=== PATIENT | male | born 1945 | race Caucasian/White ===

== ENCOUNTER 2017-07-30 09:58 | Emergency (ER) | payer MEDICARE, OTHER ==
[~2017-07-30] VITALS: Ht 182.9 cm; Wt 107.3 kg
[2017-07-30 10:05] VITALS: BP 143/76; TEMP 97.8
[2017-07-30] MEDS ORDERED: HYDROXYURE500 MG/CAP PO (10:25)
[2017-07-30] MEDS ORDERED: ZYLOPRIM 300MG300 MG PO (10:25)
[2017-07-30] MEDS ORDERED: K-DUR20 MEQ PO (10:26)
[2017-07-30] MEDS ORDERED: IRON TABLETS325 MG PO (10:26)
[2017-07-30] MEDS ORDERED: IMODIUM 2MG CAPS2 MG PO (10:27)
[2017-07-30 12:03] VITALS: PULSE 84
== END 2017-07-30 12:04 | disposition home or self-care (01) ==
LOC: COL.ER 09:58
DX: S49.92XA Unspecified injury of left shoulder and upper arm, initial encounter (principal); W10.9XXA Fall (on) (from) unspecified stairs and steps, initial encounter; Y92.009 Unspecified place in unspecified non-institutional (private) residence as the place of occurrence of the external cause

== ENCOUNTER 2020-03-25 13:00 | Outpatient (RCR) | payer MEDICARE, OTHER ==
[2020-03-24 16:09] LABS: RETIC # 0.02 M/mm3 (0.02-0.16); RETIC % 4.1 % (0.5-3.52)
[2020-03-25] VITALS (8 sets, daily range): BP systolic 97–121; BP diastolic 56–70; PULSE 64–78; TEMP 97.3–97.4
[~2020-03-25] VITALS: Ht 182.9 cm; Wt 114.3 kg
[~2020-03-25 13:00] MED LIST: HYDROXYURE500 MG/CAP PO; IMODIUM 2MG CAPS2 MG PO; IRON TABLETS325 MG PO; K-DUR20 MEQ PO; ZYLOPRIM 300MG300 MG PO
== END 2020-03-25 18:14 | disposition home or self-care (01) ==
LOC: EUO 13:00
PROVIDERS: Internal Medicine
DX: D47.3 Essential (hemorrhagic) thrombocythemia (principal)
CPT/HCPCS: J7050; P9016

== ENCOUNTER 2020-04-01 12:31 | Outpatient (RCR) | payer MEDICARE, OTHER ==
[2020-04-01] VITALS (10 sets, daily range): BP systolic 118–136; BP diastolic 60–74; PULSE 60–72; TEMP 98.1–98.3
[~2020-04-01] VITALS: Ht 182.9 cm; Wt 115.1 kg
== END 2020-04-01 17:42 | disposition home or self-care (01) ==
LOC: EUO 12:31
DX: D47.3 Essential (hemorrhagic) thrombocythemia (principal); D64.9 Anemia, unspecified
CPT/HCPCS: J7050; P9016

== ENCOUNTER 2020-04-29 13:00 | Outpatient (CLI) | payer MEDICARE, OTHER ==
[~2020-04-29] VITALS: Ht 182.9 cm; Wt 115.4 kg
[2020-04-29] VITALS (7 sets, daily range): BP systolic 137–157; BP diastolic 64–72; PULSE 70–77; TEMP 97.3–98.4
[2020-04-29] MEDS ORDERED: LOTREL 10 MG-201 CAP PO (15:58)
[2020-04-29] MEDS ORDERED: LIPITOR20 MG PO (15:59)
[2020-04-29] MEDS ORDERED: LEVOXYL0.075 MG PO (16:00)
== END 2020-04-29 20:29 | disposition home or self-care (01) ==
LOC: EUO 13:00
DX: D47.3 Essential (hemorrhagic) thrombocythemia (principal); D64.9 Anemia, unspecified
CPT/HCPCS: J7050; P9016

== ENCOUNTER 2020-05-09 10:36 | Outpatient (RCR) | payer MEDICARE, OTHER ==
[~2020-05-09] VITALS: Ht 182.9 cm; Wt 112.0 kg
[2020-05-09] VITALS (10 sets, daily range): BP systolic 108–133; BP diastolic 61–75; PULSE 57–73; TEMP 97–97.8
[~2020-05-09 10:36] MED LIST changes: +LEVOXYL0.075 MG PO; +LIPITOR20 MG PO; +LOTREL 10 MG-201 CAP PO
--- NOTE | 2020-05-09 16:00 | NUR ---
BLOOD INFUSED, NO C/O. IV D'CD INTACT, PT TO CAR VIA W/C
== END 2020-05-10 08:01 | disposition home or self-care (01) ==
LOC: EUO 10:36
DX: C49.0 Malignant neoplasm of connective and soft tissue of head, face and neck (principal); D47.3 Essential (hemorrhagic) thrombocythemia; D64.9 Anemia, unspecified
CPT/HCPCS: J7050; P9016

== ENCOUNTER 2020-05-22 07:34 | Outpatient (RCR) | payer MEDICARE, OTHER ==
[~2020-05-22] VITALS: Ht 182.9 cm; Wt 110.7 kg
[2020-05-22] VITALS (8 sets, daily range): BP systolic 95–122; BP diastolic 27–72; PULSE 63–74; TEMP 97.4–98.4
== END 2020-05-22 16:02 | disposition home or self-care (01) ==
LOC: EUO 07:34 → EDSTATUS 09:00 → EUO 16:02
DX: C44.90 Unspecified malignant neoplasm of skin, unspecified (principal); D46.A Refractory cytopenia with multilineage dysplasia; D64.9 Anemia, unspecified
CPT/HCPCS: J7050; P9016

== ENCOUNTER 2020-11-24 11:37 | Emergency (ER) | payer MEDICARE, OTHER ==
[~2020-11-24] VITALS: Ht 182.9 cm; Wt 120.5 kg
[2020-11-24 11:47] VITALS: TEMP 97.4
[2020-11-24] MEDS ORDERED: PERCOCET 325 MG1 TA2 PO (15:55)
[2020-11-24 16:35] VITALS: BP 132/62; PULSE 67
== END 2020-11-24 16:35 | disposition home or self-care (01) ==
LOC: COL.ER 11:37
DX: S42.211A Unspecified displaced fracture of surgical neck of right humerus, initial encounter for closed fracture (principal); S52.001A Unspecified fracture of upper end of right ulna, initial encounter for closed fracture; S00.83XA Contusion of other part of head, initial encounter; I10 Essential (primary) hypertension; Z87.891 Personal history of nicotine dependence; W18.09XA Striking against other object with subsequent fall, initial encounter
CPT/HCPCS: J3010

== ENCOUNTER 2021-09-16 13:25 | Inpatient (IN) | payer MEDICARE, OTHER ==
[~2021-09-16] VITALS: Ht 182.9 cm; Wt 122.6 kg
[~2021-09-16 13:25] MED LIST changes: +PERCOCET 325 MG1 TA2 PO
[2021-09-16] MEDS ORDERED: HYDROXYURE500 MG/CAP PO ×2 (14:56)
[2021-09-16] MEDS ORDERED: MONODOX100 PO (14:56)
--- NOTE | 2021-09-16 21:45 | NUR ---
Initial shift assessment done- pleasant, alert/oriented, voiding tea colored urine per urinal, denies pain/SOB, denies need for a snack tonight- understands to call for assistance out of bed
--- NOTE | 2021-09-17 05:21 | NUR ---
Quiet night- slept well, no requests. Voiding well-uses urinal
[2021-09-17 06:26] VITALS: BP 126/64; PULSE 93; TEMP 98.1
--- NOTE | 2021-09-17 08:00 | NUR ---
Report received from VALDEMAR Singh and patient was brought over to room 340 approxiately at 0830. Patient was transported via wheelchair and was able to stand on scale with walker but was able to walk to his room with the use of a cane. All of patient's personal belongings was with him. Call light and bedside table are within reach. Will continue to monitor patient throughout shift.
--- NOTE | 2021-09-17 08:00 | NUR ---
Patient sitting up in bed, A&Ox4. VSS. IV CDI. Denies pain and discomfort. Patient incontinent of urine, nurse assisted with changing patient. Patient transfered to the wheelchair to go to [facility]. Report called to VALDEMAR Zayas. Personal belongings with the patient. No further needs expressd.
[2021-09-17 11:04] LABS: HEMOGLOBIN 12.4 g/dl (13.5-18.0); MEAN CELL VOLUME 131 fl (80.0-100.0); MEAN CORPUSCULAR HEMOGLOBIN 46 pg (27-31); MEAN CORPUSCULAR HGB CONC 35 g/dl (33.0-37.0); MEAN PLATELET VOLUME 8.9 fl (7.4-10.4); RED BLOOD COUNT 2.69 M/mm3 (4.20-5.60); REDCELL DISTRIBUTION WIDTH-CV 13.1 % (11.5-14.5)
[2021-09-17 11:07] LABS: HEMATOCRIT 35.3 % (42.0-52.0); PLATELET COUNT 452 K/mm3 (130-400)
[2021-09-17 11:54] LABS: BAND 1 % (0-10); LYMPHOCYTE 8 % (20.0-51.0); NEUTROPHILS 81 % (42.0-75.2); PLATELET ESTIMATE INCREASED (NORMAL)
[2021-09-17 11:55] LABS: ANISOCYTOSIS 3+
--- NOTE | 2021-09-17 20:00 | NUR ---
PT RESTING IN BED. COOPERATIVE A&O X4. NO NEEDS AT THIS TIME. CALL LIGHT IN REACH. BED ALARM SET.
[2021-09-18 05:15] VITALS: BP 130/64; PULSE 110; TEMP 98.6
--- NOTE | 2021-09-18 10:06 | NUR ---
Follow-up visit; Patient thanked Business Support Coordinator for looking in on him, visiting and wishing him well and rapid healing as he wishes to go home.
[2021-09-18 18:31] VITALS: BP 129/57; PULSE 100; TEMP 98.1
--- NOTE | 2021-09-19 05:17 | NUR ---
PT A/OX 4 SLEPT WELL, DENIES ANY NEEDS AT THIS TIME
[2021-09-19 05:50] VITALS: BP 126/46; PULSE 61; TEMP 97.8
--- NOTE | 2021-09-19 07:43 | NUR ---
Report received from VALDEMAR Rodriguez. Patient is sleeping in bed. Call light and bedside table are within reach. Will continue to monitor patient throughout shift.
--- NOTE | 2021-09-19 09:15 | NUR ---
Patient reported he had two episodes last evening and one episode this morning of diarrhea and wanted immodium. This nurse requested the hospitalist prescribed immodium for the patient. The hospitalist wanted labs drawn for CDiff and to place the patient on contact precaution. This nurse complied. Call light and bedside table are within reach.
--- NOTE | 2021-09-19 12:00 | NUR ---
Patient completed all therapies for the day and is resting in bed. Patient denies pain at this time. Call light and bedside table are within reach.
[2021-09-19 13:59] LABS: CLOSTRIDIUM DIFF A/B NEG; CLOSTRIDIUM DIFF A/B INTERP No C.diff present
--- NOTE | 2021-09-19 16:34 | NUR ---
Patient tested negative for CDiff.
[2021-09-19 17:02] VITALS: BP 115/58; PULSE 94; TEMP 98.4
[2021-09-20 04:45] VITALS: BP 130/59; PULSE 107; TEMP 98.1
--- NOTE | 2021-09-20 05:04 | NUR ---
RESTING QUIETLY/SLEEPING MOST OF THE NIGHT. NO DYSPNEA AT REST. GAIT STEADY THOUGH PT HAS SOME DIFFICULTY WITH TRANSFERRING FROM BED TO STANDING.
--- NOTE | 2021-09-20 06:53 | NUR ---
Report received from VALDEMAR Thomas. Patient is sleeping in bed. Call light and bedside table are within reach. Will continue to monitor patient throughout shift.
--- NOTE | 2021-09-20 09:27 | NUR ---
production line worker met with patient at bedside to discuss discharge plan. Patient reports that he and his live in an apartment that is attached to his daughters home. Patient reports that prior to this hospitalization he was independent with his ADL's and has a cane that he utilizes when he goes out in public or takes walks. PCP is Dr. Head and he utilizes [facility] for medication needs. Spoke with the patient about going home with HH PT/OT vs. out patient therapy. Patient doesn't feel like he needs either of them and that he can do the exercises that he has been doing in the hospital with his at home on their own. This information was passed onto the patient's RN. Discharge plan: Home with family: is not interested in out patient PT/OT or HH
[2021-09-20 18:15] VITALS: BP 106/58; PULSE 98; TEMP 99
--- NOTE | 2021-09-21 04:39 | NUR ---
RESTING QUIETLY/SLEEPING. ASSIST OF ONE WITH TRANSFER FROM BED TO STANDING. GAIT FAIRLY STEADY. COMPLIANT WITH CARE OVERALL.
[2021-09-21 05:28] VITALS: BP 137/61; PULSE 92; TEMP 98.1
--- NOTE | 2021-09-21 06:58 | NUR ---
Report received from VALDEMAR Thomas. Patient is resting comfortably in bed. Patient denies pain at this time. Call light and bedside table are within reach. Will continue to monitor patient throughout shift.
--- NOTE | 2021-09-21 10:30 | NUR ---
Patient was made MOD-I in his room.
--- NOTE | 2021-09-21 14:00 | NUR ---
Patient's is at bedside
--- NOTE | 2021-09-21 16:40 | NUR ---
Solderer Torch met with patient to follow up on discharge plan. Patient will discharge tomorrow and states he wants to be heading home by 1100. SW discussed recommendation for outpatient PT. Patient states he wants to get home first, then decide on outpatient PT. SW advised that orders would be written for outpatient PT and that he can call to schedule an appointment when he is ready. SW offered to make patient's first appointment but he declined.
[2021-09-21 17:02] VITALS: BP 114/52; PULSE 86; TEMP 97.3
--- NOTE | 2021-09-21 22:06 | NUR ---
PT LAYING IN BED WAITING FOR EVENING MEDICATIONS. MEDICATIONS GIVEN. DENIES PAIN, PT STATES HE IS READY TO BE DISCHARGED. CALL LIGHT IN REACH.
[2021-09-22 05:32] VITALS: BP 133/66; PULSE 91; TEMP 97.7
--- NOTE | 2021-09-22 06:23 | NUR ---
PT HAD AN UNEVENTFUL NIGHT. PT SLEPT PART OF NIGHT, STATED HE WAS JUST READY FOR DISCHARGE. CALL LIGHT IN REACH.
--- NOTE | 2021-09-22 08:05 | NUR ---
Pt assessment complete. Pt is sitting up in bed upon entry, he is A/O x4. His breathing is even and unlabored on RA. Pt denies any pain. Excited to discharge home today. Denies needs at this time.
--- NOTE | 2021-09-22 10:15 | NUR ---
Discharge paperwork and instructions reviewed with patient. All questions answered at this time. Pt wheeled out of facility at this time.
--- NOTE | 2021-09-22 10:19 | NUR ---
Follow up; Patient thankfully told Sole Assessor he was leaving today and thanked her for visiting him and offering God's blessings.
--- NOTE | 2021-09-22 13:29 | NUR ---
ADMISSION Admission QIM scores were reviewed by the team. Code of 3 chosen for toileting transfers was determined by team discussion to be the most usual performance for this patient during the assessment period. Code of 3 chosen for upper body dressing was determined by team discussion to be the most usual performance before interventions for this patient during the assessment period. Code of 3 chosen for lower body dressing was determined by team discussion to be the most usual performance for this patient during the assessment period. Code of 1 chosen for putting on/taking off footwear was determined by team discussion to be the most usual performance for this patient during the assessment period. Code of 2 chosen for lying to sitting on side of bed was determined by team discussion to be the most usual performance for this patient during the assessment period. Code of 3 for sit to stand was determined by team discussion to be the most usual performance for this patient during the assessment period. Code of 3 for chair/bed to chair transfers was determined by team discussion to be the most usual performance for this patient during the assessment period. DISCHARGE Discharge QIM scores were reviewed by the team. Code of 6 chosen for shower/bathe self was determined by team discussion to be the most usual performance before interventions for this patient during the assessment period. Code of 3 chosen for lying to sitting on side of bed was determined by team discussion to be the most usual performance for this patient during the assessment period. PD Madeline
== END 2021-09-22 10:20 | disposition home or self-care (01) | DRG 948 ==
LOC: MEDICAL 19:01
PROVIDERS: Internal Medicine; Physician Assistant; ADMIT Physical Medicine & Rehabilitation Sports Medicine
DX: R53.81 Other malaise (principal); M62.82 Rhabdomyolysis; I48.20 Chronic atrial fibrillation, unspecified; L03.114 Cellulitis of left upper limb; E87.1 Hypo-osmolality and hyponatremia; C94.6 Myelodysplastic disease, not elsewhere classified; C44.92 Squamous cell carcinoma of skin, unspecified; R26.89 Other abnormalities of gait and mobility; D75.838 Other thrombocytosis; I10 Essential (primary) hypertension; E03.9 Hypothyroidism, unspecified; M10.9 Gout, unspecified; Z91.81 History of falling; Z87.891 Personal history of nicotine dependence; Z73.6 Limitation of activities due to disability; Z79.2 Long term (current) use of antibiotics; Z79.899 Other long term (current) drug therapy; Z92.3 Personal history of irradiation
CPT/HCPCS: 99231-AI; J1650

== ENCOUNTER 2021-11-10 07:08 | Inpatient (IN) | payer MEDICARE, OTHER ==
[~2021-11-10] VITALS: Ht 182.9 cm; Wt 120.6 kg
[2021-11-10] VITALS (16 sets, daily range): BP systolic 127–173; BP diastolic 56–93; PULSE 74–89; TEMP 97.6–98.4
[~2021-11-10 07:08] MED LIST changes: +MONODOX100 PO
[2021-11-10 08:05] LABS: BASO # 0.1 K/mm3 (0.0-0.2); BASO % 0.7 % (0.0-2.0); EOS # 0.1 K/mm3 (0.0-0.7); EOS % 0.9 % (0.0-4.0); GRAN # 6.6 K/mm3 (1.4-6.5); GRAN % 75.2 % (42.2-75.2); HEMOGLOBIN 11.8 g/dl (13.5-18.0); LYMPH # 1.2 K/mm3 (1.2-3.4); LYMPH % 13.3 % (20.0-51.0); MEAN CELL VOLUME 128 fl (80.0-100.0); MEAN CORPUSCULAR HEMOGLOBIN 45 pg (27-31); MEAN CORPUSCULAR HGB CONC 35 g/dl (33.0-37.0); MEAN PLATELET VOLUME 8.9 fl (7.4-10.4); MONO # 0.8 K/mm3 (0.1-0.6); MONO % 9.6 % (1.7-9.3); PLATELET COUNT 469 K/mm3 (130-400); RED BLOOD COUNT 2.63 M/mm3 (4.20-5.60); REDCELL DISTRIBUTION WIDTH-CV 11.4 % (11.5-14.5)
[2021-11-10 08:06] LABS: HEMATOCRIT 33.6 % (42.0-52.0)
[2021-11-10 08:19] LABS: CALCIUM 8.3 mg/dL (8.4-10.2); CREATININE, serum 0.72 mg/dL (0.72-1.25); MAGNESIUM 1.5 mg/dL (1.6-2.6); POTASSIUM 3.8 mmol/L (3.5-4.5)
[2021-11-10 08:25] LABS: INR 1.3 (0.8-3.0); PARTIAL THROMBOPLASTIN TIME 33.9 SECONDS (26.0-37.0); PROTHROMBIN TIME 14.6 SECONDS (9.7-12.8)
[2021-11-10] MEDS ORDERED: HYDROXYURE500 MG/CAP PO (08:26)
[2021-11-10] MEDS ORDERED: LIPITOR20 MG PO (08:28)
[2021-11-10] MEDS ORDERED: TOPROL XL 25MG25 MG PO (08:28)
[2021-11-10] MEDS ORDERED: K-TAB20 PO (08:29)
[2021-11-10] MEDS ORDERED: LASIX 40MG TABL40 MG PO (08:29)
[2021-11-10] MEDS ORDERED: ELIQUIS 5MG PO (08:30)
[2021-11-10 08:40] LABS: THYROID STIMULATING HORMONE 7.042 uIU/mL (0.350-4.940)
--- NOTE | 2021-11-10 13:53 | NUR ---
Report to Sallie harper.
--- NOTE | 2021-11-10 14:36 | NUR ---
Pt to room 352 at this time.
--- NOTE | 2021-11-10 17:25 | NUR ---
Patient independent in the room. A&O. IV CDI. VSS. Denies pain and discomfort. No further needs expressed. Call light within reach
--- NOTE | 2021-11-10 22:38 | NUR ---
Patient A/Ox4. Patient denies any chest pain or discomfort. Denies SOB, N/V or dizziness. All scheduled meds given per MAR. Call light in reach. Will continue to monitor.
[2021-11-11 04:06] VITALS: BP 131/62; PULSE 75; TEMP 98
[2021-11-11 06:31] LABS: BASO # 0.1 K/mm3 (0.0-0.2); BASO % 0.7 % (0.0-2.0); EOS # 0.1 K/mm3 (0.0-0.7); EOS % 1.5 % (0.0-4.0); GRAN # 6.1 K/mm3 (1.4-6.5); GRAN % 71.4 % (42.2-75.2); HEMOGLOBIN 11.6 g/dl (13.5-18.0); LYMPH # 1.4 K/mm3 (1.2-3.4); LYMPH % 16.1 % (20.0-51.0); MEAN CELL VOLUME 131 fl (80.0-100.0); MEAN CORPUSCULAR HEMOGLOBIN 49 pg (27-31); MEAN CORPUSCULAR HGB CONC 37 g/dl (33.0-37.0); MONO # 0.8 K/mm3 (0.1-0.6); MONO % 9.8 % (1.7-9.3); PLATELET COUNT 476 K/mm3 (130-400); RED BLOOD COUNT 2.39 M/mm3 (4.20-5.60)
[2021-11-11 06:33] LABS: INR 1.2 (0.8-3.0); PROTHROMBIN TIME 13.3 SECONDS (9.7-12.8)
[2021-11-11 06:56] LABS: HEMATOCRIT 31.4 % (42.0-52.0)
[2021-11-11 07:02] LABS: CALCIUM 8.2 mg/dL (8.4-10.2); CREATININE, serum 0.64 mg/dL (0.72-1.25); MAGNESIUM 1.5 mg/dL (1.6-2.6); POTASSIUM 3.6 mmol/L (3.5-4.5)
[2021-11-11 08:26] VITALS: BP 129/71; PULSE 73; TEMP 98.1
--- NOTE | 2021-11-11 09:30 | NUR ---
Warfarin Initial Dosing Pharmacy Note Ordering Provider: Birgit López MD Indication: Atrial fibrillation LABS: INR 1.2 Recommendation: Will give Warfarin 5 mg po qHS. Pharmacy will continue to closely monitor and check daily INR levels. Home Regimen: New start. Bridging with therapeutic Lovenox.
[2021-11-11 12:26] VITALS: BP 107/54; PULSE 79; TEMP 97.7
--- NOTE | 2021-11-11 12:44 | NUR ---
PT DENIES ANY COMPLAINTS. WILL CONTINUE TO CHECK ON PATIENT PER ROUNDING STANDARDS.
--- NOTE | 2021-11-11 14:09 | NUR ---
MIKO and SW student met with the patient to discuss discharge plan. The patient lives in [place] with his , Maggy (ph#[phone]), and their daughter, Franchesca. He reports independence with ADLs and has a cane available, if needed. The patient's PCP is Dr. Elliot Head and he receives his medications from [facility]. He reports no difficulties obtaining his meds. The patient does not have a DPOA-HC in EMR, but he states that he does have one completed and at home. The patient plans on returning home with his family upon discharge. No additional needs at this time. *Discharge plan: home with family*
[2021-11-11 16:30] VITALS: BP 117/51; PULSE 70; TEMP 98
--- NOTE | 2021-11-11 18:53 | NUR ---
REPORT GIVEN TO VALDEMAR RUIZ
[2021-11-11 20:10] VITALS: BP 124/48; PULSE 77; TEMP 97.8
--- NOTE | 2021-11-11 21:47 | NUR ---
Patient assessed around 2044. Alert and oriented x 4, and able to make needs known. Reported pain to left hand, and given PRN APAP as requested. Peripheral INT to left AC. Denies SOB and dyspnea. LS CTA. HRR. Telemetry in place-normal sinus. BSAx4. 1+ edema BLE. Voices no questions, needs, or concerns at this time. In bed with call light within reach.
[2021-11-11 23:32] VITALS: BP 131/54; PULSE 74; TEMP 97.3
[2021-11-12 04:41] VITALS: BP 114/56; PULSE 63; TEMP 97.4
--- NOTE | 2021-11-12 06:00 | NUR ---
Patient has been resting in bed with call light within reach. Voices no questions, needs, or concerns at this time. In bed with call light within reach.
[2021-11-12 06:05] LABS: BASO # 0.1 K/mm3 (0.0-0.2); BASO % 0.7 % (0.0-2.0); EOS # 0.1 K/mm3 (0.0-0.7); EOS % 1.2 % (0.0-4.0); GRAN # 5.3 K/mm3 (1.4-6.5); GRAN % 63.9 % (42.2-75.2); HEMOGLOBIN 11.6 g/dl (13.5-18.0); LYMPH # 1.8 K/mm3 (1.2-3.4); LYMPH % 21.9 % (20.0-51.0); MEAN CELL VOLUME 129 fl (80.0-100.0); MEAN CORPUSCULAR HEMOGLOBIN 45 pg (27-31); MEAN CORPUSCULAR HGB CONC 35 g/dl (33.0-37.0); MEAN PLATELET VOLUME 8.9 fl (7.4-10.4); MONO % 11.8 % (1.7-9.3); PLATELET COUNT 470 K/mm3 (130-400); RED BLOOD COUNT 2.56 M/mm3 (4.20-5.60); REDCELL DISTRIBUTION WIDTH-CV 11.3 % (11.5-14.5)
[2021-11-12 06:08] LABS: HEMATOCRIT 33.1 % (42.0-52.0)
[2021-11-12 06:19] LABS: CALCIUM 8.4 mg/dL (8.4-10.2); CREATININE, serum 0.64 mg/dL (0.72-1.25); MAGNESIUM 1.8 mg/dL (1.6-2.6); POTASSIUM 3.5 mmol/L (3.5-4.5)
[2021-11-12 06:21] LABS: INR 1.2 (0.8-3.0); PROTHROMBIN TIME 12.8 SECONDS (9.7-12.8)
--- NOTE | 2021-11-12 08:28 | NUR ---
Warfarin Follow-up Pharmacy Note Current regimen: Warfarin 5 mg po qHS LABS: INR 1.2 Changes in therapy: Will increase Warfarin to 7.5 mg po qHS starting tonight. Pharmacy will continue to monitor daily INR levels.
[2021-11-12 08:29] VITALS: BP 130/56; PULSE 67; TEMP 97.7
--- NOTE | 2021-11-12 08:39 | NUR ---
PT INR STAYED THE SAME TODAY. DISCUSSED WITH PROVIDER.
--- NOTE | 2021-11-12 09:40 | NUR ---
PT DENIES ANY NEEDS AT THIS TIME. DENIES ANY HYGEINE HE WOULD PREFER TO SHOWER AT HOME IF HE SHOULD DISCHARGE. NO OTHER CONCERNS.
[2021-11-12] MEDS ORDERED: COUMADIN 77.5 MG/TAB PO (11:09)
[2021-11-12] MEDS ORDERED: LOVENOX120 MG/0.8 SQ (11:09)
[2021-11-12] MEDS ORDERED: BETAPACE 80MG80 MG PO (11:10)
[2021-11-12] MEDS ORDERED: MAG-OX 400400 MG/TAB PO (11:12)
== END 2021-11-12 13:45 | disposition home or self-care (01) | DRG 310 ==
LOC: COL.CAR 07:08 → MEDICAL 10:21 → INPTSU 10:21 → MEDICAL 14:50
PROVIDERS: ADMIT Internal Medicine Adult Congenital Heart Disease
PROC: 5A2204Z Restoration of Cardiac Rhythm, Single (ICD-10-PCS; principal; 2021-11-10)
PROC: B24BZZ4 Ultrasonography of Heart with Aorta, Transesophageal (ICD-10-PCS; 2021-11-10)
DX: I48.19 Other persistent atrial fibrillation (principal)
CPT/HCPCS: J0461; J1650; J2370; J2704; J3475; J7120

== ENCOUNTER → 2023-06-07 | Outpatient (CLI) | payer MEDICARE, OTHER ==
[~2023-06-07] MED LIST changes: +BETAPACE 80MG80 MG PO; +COUMADIN 77.5 MG/TAB PO; +ELIQUIS 5MG PO; +K-TAB20 PO; +LASIX 40MG TABL40 MG PO; +LOVENOX120 MG/0.8 SQ; +MAG-OX 400400 MG/TAB PO; +TOPROL XL 25MG25 MG PO
== END ==
LOC: COL.RAD 14:38
DX: C44.311 Basal cell carcinoma of skin of nose (principal)

== ENCOUNTER 2023-08-24 15:30 | Outpatient (RCR) | payer MEDICARE, OTHER | END 2023-09-04 | disposition home or self-care (01) | LOC: WSST | DX: C44.311 Basal cell carcinoma of skin of nose (principal) ==

== ENCOUNTER → 2023-10-03 | Outpatient (CLI) | payer MEDICARE | LOC: COL.RAD 10:59 | DX: C06.9 Malignant neoplasm of mouth, unspecified (principal) ==

== ENCOUNTER → 2023-10-04 | Outpatient (CLI) | payer MEDICARE, OTHER ==
[~2023-10-04] MED LIST changes: +Gadoterate 20 ML VIAL IV ONE; +Iohexol 300 - 100 ML VIAL IV ONE; +NS 100 ML IV SCH
== END ==
LOC: COL.RAD 06:46
DX: J32.0 Chronic maxillary sinusitis (principal); C06.0 Malignant neoplasm of cheek mucosa; I45.9 Conduction disorder, unspecified; Z98.890 Other specified postprocedural states
CPT/HCPCS: A9575; Q9967

== ENCOUNTER → 2023-10-05 | Outpatient (RCR) | payer MEDICARE, OTHER ==
[~2023-10-05] MED LIST changes: -Gadoterate 20 ML VIAL IV ONE; -Iohexol 300 - 100 ML VIAL IV ONE; -NS 100 ML IV SCH
== END | disposition home or self-care (01) ==
LOC: WSST
DX: C44.311 Basal cell carcinoma of skin of nose (principal)

== ENCOUNTER 2023-11-02 10:30 | Outpatient (RCR) | payer MEDICARE, OTHER | END 2023-11-03 | disposition home or self-care (01) | LOC: WSST | DX: R13.12 Dysphagia, oropharyngeal phase (principal); C44.311 Basal cell carcinoma of skin of nose ==

== ENCOUNTER → 2024-03-26 | Day surgery (SDC) | payer MEDICARE, OTHER ==
[~2024-03-26] VITALS: Ht 182.9 cm; Wt 100.7 kg
[~2024-03-26] MED LIST changes: +COUMADIN 5MG5 MG/TAB PO; +EUTHYROX100 MCG PO; +SYNTHROID0.1 MG/TAB PO
[2024-03-26 16:28] VITALS: BP 122/62; PULSE 56; TEMP 97
--- NOTE | 2024-03-26 17:09 | NUR ---
1650- PT DONE WITH PROCEDURE. PT ALERT AND ORIENTED. PT TOLERATED PROCEDURE WELL. PT DENIES ANY PAIN OR NAUSEA. 1700- DISCHARGE INSTRUCTIONS GIVEN TO PT. ALL QUESTIONS ANSWERED. 1705- PT TRANSFERRED OUT OF THE HOSPITAL VIA WHEELCHAIR WITH ASSIST TO PRIVATE VEHICLE DRIVEN BY .
== END ==
LOC: SDCO 15:44
DX: K94.23 Gastrostomy malfunction (principal); C06.9 Malignant neoplasm of mouth, unspecified; Z85.828 Personal history of other malignant neoplasm of skin